=== PATIENT | male | born 1960 ===

== ENCOUNTER 2017-02-08 19:04 | Emergency (ER) | payer MEDICAID, OTHER ==
[2017-02-08 19:04] VITALS: BMI 27.3
[2017-02-08 19:11] VITALS: TEMP 97.8; O2SAT 98
--- NOTE | 2017-02-08 19:19 | C.PDOC ---
History Of Present Illness Pt presents with having high blood pressure after checking his BP today at [facility]. He notes intermittently taking his BP meds . Pt also c/o headaches for a couple of years and has taken no meds for it. Pt notes being anxious which prompted his visit. Had CT and blood work done which were negative. Denies nausea, vomiting, visual changes, SOB, fever, chills, chest pain, diaphoresis, dizziness, Time Seen by Provider: 02/08/17 19:19 Chief Complaint (Nursing): High Blood Pressure History Per: Patient History/Exam Limitations: no limitations Onset/Duration Of Symptoms: Hrs Current Symptoms Are (Timing): Better Associated Symptoms: denies: Chest Pain, Blurred Vision Quality Of Symptoms: denies: Asymptomatic Severity: None Pain Scale Rating Of: 0 Exacerbating Factor(s): Pos: None Recent travel outside of the [place]: No Additional History Per: Patient Past Medical History Reviewed: Historical Data, Nursing Documentation, Vital Signs Vital Signs: Last Vital Signs Temp 97.8 F 02/08/17 19:07 Pulse 77 02/08/17 19:07 Resp 16 02/08/17 19:07 BP 139/86 02/08/17 19:07 Pulse Ox 98 02/08/17 19:47 - Medical History PMH: Depression, Diverticulitis, HTN Denies: Chronic Kidney Disease - [facility] Procedures VACCINATION NEC (04/05/15) Family History: States: No Known Family Hx - Social History Hx Tobacco Use: No Hx Alcohol Use: No Hx Substance Use: No - Immunization History Hx Tetanus Toxoid Vaccination: No Hx Influenza Vaccination: No Hx Pneumococcal Vaccination: No Review Of Systems Constitutional: Positive for: Other (High blood pressure). Negative for: Fever , Chills, Sweats Eyes: Negative for: Vision Change Cardiovascular: Negative for: Chest Pain Respiratory: Negative for: Shortness of Breath Gastrointestinal: Negative for: Nausea, Vomiting Genitourinary: Negative for: Dysuria Musculoskeletal: Negative for: Back Pain Skin: Negative for: Rash Neurological: Positive for: Headache. Negative for: Dizziness Psych: Positive for: Anxiety Physical Exam - Physical Exam Appears: Non-toxic, No Acute Distress Skin: Warm, Dry Head: Normacephalic Eye(s): bilateral: Normal Inspection Oral Mucosa: Moist Neck: Trachea Midline, Supple Chest: Symmetrical Cardiovascular: Rhythm Regular Respiratory: No Rales, No Rhonchi, No Wheezing Gastrointestinal/Abdominal: Soft, No Tenderness, No Distention Back: No CVA Tenderness Extremity: Normal ROM, No Tenderness Extremity: Bilateral: Atraumatic, Normal Color And Temperature Neurological/Psych: Oriented x3, Normal Speech, Normal Cognition Gait: Steady ED Course And Treatment ECG: Interpreted By Me, Viewed By Me ECG Rhythm: Sinus Rhythm (70), L BBB, Nonspecific Changes O2 Sat by Pulse Oximetry: 98 (RA) Pulse Ox Interpretation: Normal Reevaluation Time: 20:20 Reassessment Condition: Improved Disposition Counseled Patient/Family Regarding: Studies Performed, Diagnosis - Disposition Referrals: [facility] [Outside] Disposition: HOME/ ROUTINE Disposition Time: 19:19 Condition: FAIR Instructions: Hypertension (DC) - Clinical Impression Clinical Impression: Hypertension - Scribe Statement The provider has reviewed the documentation as recorded by the Scribe carly manning All medical record entries made by the Scribe were at my direction and personally dictated by me. I have reviewed the chart and agree that the record accurately reflects my personal performance of the history, physical exam, medical decision making, and the department course for this patient. I have also personally directed, reviewed, and agree with the discharge instructions and disposition.
[2017-02-08 20:27] VITALS: BP 139/88; PULSE 80; RESP 12
--- NOTE | 2017-02-09 21:28 | CARD ---
APPROVED REPORT EKG Measurement Heart [id number] <Conclusion> Normal sinus rhythm Left bundle branch block Abnormal ECG
== END 2017-02-08 20:43 | disposition home or self-care (01) ==
LOC: C.ER 19:04
DX: I10 Essential (primary) hypertension (principal)

== ENCOUNTER 2017-02-16 05:15 | Emergency (ER) | payer SELFPAY ==
[2017-02-16 05:15] VITALS: BMI 29.6
[2017-02-16 05:29] VITALS: O2SAT 99
--- NOTE | 2017-02-16 05:36 | C.PDOC ---
History Of Present Illness 56 year old male who presents to the ER with a complaint of a throbbing, frontal headache that he has had intermittently for several months. Patient states he blood pressure was recently found to be high and was recently treated in the ER for it. Patient reports he was started on new medications; however, he cannot recall what they are and notes he forgot to take them yesterday. Denies dizziness, nausea, vomiting, or chest pain. Time Seen by Provider: 02/16/17 05:29 Chief Complaint (Nursing): Headache History Per: Patient History/Exam Limitations: no limitations Onset/Duration Of Symptoms: Days, Intermittent Episodes Current Symptoms Are (Timing): Still Present Quality: Other (Throbbing) Preceeding Symptoms: Known Migraine Symptoms Associated Symptoms: denies: Nausea, Vomiting Recent travel outside of the [place]: No Past Medical History Reviewed: Historical Data, Nursing Documentation, Vital Signs Vital Signs: Last Vital Signs Temp 98.3 F 02/16/17 05:25 Pulse 64 02/16/17 05:25 Resp 20 02/16/17 05:25 BP 186/109 H 02/16/17 05:25 Pulse Ox 99 02/16/17 06:11 - Medical History PMH: Depression, Diverticulitis, HTN Surgical History: No Surg Hx - [facility] Procedures VACCINATION NEC (04/05/15) Family History: States: Unknown Family Hx - Social History Hx Tobacco Use: No Hx Alcohol Use: No Hx Substance Use: No - Immunization History Hx Tetanus Toxoid Vaccination: No Hx Influenza Vaccination: No Hx Pneumococcal Vaccination: No Review Of Systems Cardiovascular: Negative for: Chest Pain, Palpitations Gastrointestinal: Negative for: Nausea, Vomiting Neurological: Positive for: Headache. Negative for: Dizziness Physical Exam - Physical Exam Appears: Non-toxic Skin: Normal Color, Warm, Dry Head: Atraumatic, Normacephalic Eye(s): bilateral: Normal Inspection, PERRL, EOMI Nose: Normal Oral Mucosa: Moist Neck: Normal, Supple Chest: Symmetrical, No Tenderness Cardiovascular: Rhythm Regular, No Murmur Respiratory: Normal Breath Sounds, No Rales, No Rhonchi, No Wheezing Gastrointestinal/Abdominal: Soft, No Tenderness Extremity: Bilateral: Atraumatic, Normal Color And Temperature, Normal ROM Neurological/Psych: Oriented x3, Normal Speech, Other (No focal deficits) Gait: Steady ED Course And Treatment O2 Sat by Pulse Oximetry: 99 (Room air) Pulse Ox Interpretation: Normal Medical Decision Making Medical Decision Making: Impression: 56 year old male with elevated blood pressure. Plan: * Tylenol * Catapres Patient's prior records review, it shows patient has recently had blood work done with no abnormal results; past head CTs and MRIs have been found to be normal. Upon re-eval BP no longer elevated. Patient remained alert and oriented and headache is improving. No neuro deficit. Patient stable for discharge Disposition Counseled Patient/Family Regarding: Diagnosis, Need For Followup, Rx Given - Disposition Disposition: HOME/ ROUTINE Disposition Time: 06:09 Condition: STABLE Additional Instructions: Follow up with clinic in 2-5 days for further evaluation. Take your HTN medications as prescribed. Return to the emergency department at any time if symptoms persist or worsen. Prescriptions: Acetaminophen/Butalbital/Caf [Fioricet] 1 tab PO TID PRN #20 tab PRN Reason: Headache Instructions: Chronic Hypertension (ED) - POA Present On Arrival: None - Clinical Impression Clinical Impression: Headache, Hypertension - Scribe Statement The provider has reviewed the documentation as recorded by the Scribcrys Kim All medical record entries made by the Scribe were at my direction and personally dictated by me. I have reviewed the chart and agree that the record accurately reflects my personal performance of the history, physical exam, medical decision making, and the department course for this patient. I have also personally directed, reviewed, and agree with the discharge instructions and disposition.
[2017-02-16 06:20] VITALS: BP 148/88; PULSE 88; RESP 18; TEMP 98.2
== END 2017-02-16 06:14 | disposition home or self-care (01) ==
LOC: C.ER 05:15
DX: I10 Essential (primary) hypertension (principal); R51 Headache

== ENCOUNTER 2017-03-13 16:12 | Emergency (ER) | payer SELFPAY ==
[2017-03-13 16:12] VITALS: BMI 29.6
[2017-03-13 16:21] VITALS: BP 162/83; PULSE 78; RESP 20; TEMP 97.9; O2SAT 98
[2017-03-13 16:59] LABS: SQUAMOUS EPITHIAL < 1 /hpf (0-5); URINE BILIRUBIN NEGATIVE (NEGATIVE); URINE BLOOD NEGATIVE (NEGATIVE); URINE CLARITY Clear (Clear); URINE COLOR Yellow (YELLOW); URINE GLUCOSE (UA) NORMAL (Normal); URINE LEUKOCYTE ESTERASE NEG Leu/uL (Negative); URINE NITRATE NEGATIVE (NEGATIVE); URINE PROTEIN NEGATIVE (NEGATIVE); URINE UROBILINOGEN NORMAL mg/dL (0.2-1.0)
--- NOTE | 2017-03-13 17:46 | RAD ---
Lumbar spine three views History: Low back pain. Comparison: None available. Findings: Question minimal retrolisthesis of L4 on L5. Anterior osteophytosis at the L3-4 level. Lower level facet hypertrophy and sclerosis. Mild inferior endplate concavity of the L5 vertebral body. Mild sclerosis at the superior endplate of the L2 vertebral body. Aortic calcification. Degenerative changes at the level of the bilateral SI joints with additional mild osteitis pubis. Punctate radiopaque calcification projects over the left sade abdomen, nonspecific. Calcified phleboliths in the pelvis. Impression: Question minimal retrolisthesis of L4 on L5. Anterior osteophytosis at the L3-4 level. Lower level facet hypertrophy and sclerosis. Mild inferior endplate concavity of the L5 vertebral body. Mild sclerosis at the superior endplate of the L2 vertebral body. Aortic calcification. Degenerative changes at the level of the bilateral SI joints with additional mild osteitis pubis. Punctate radiopaque calcification projects over the left sade abdomen, nonspecific. Calcified phleboliths in the pelvis. If pain persists, consider MRI.
--- NOTE | 2017-03-13 18:14 | C.PDOC ---
History Of Present Illness 56 y/o male presents to the ED for evaluation of lower back pain which began yesterday. Patient denies fever, chills, dysuria, hematuria, urinary/bowel incontinence, upper/lower extremity numbness/weakness, direct injury/trauma to the affected areas. Time Seen by Provider: 03/13/17 16:42 Chief Complaint (Nursing): Back Pain History Per: Patient History/Exam Limitations: no limitations Onset/Duration Of Symptoms: Hrs Current Symptoms Are (Timing): Still Present Quality Of Discomfort: "Pain" Previous Symptoms: Back Pain Associated Symptoms: denies: Incontinence, New Weakness, New Numbness Additional History Per: Patient Past Medical History Reviewed: Historical Data, Nursing Documentation, Vital Signs Vital Signs: Last Vital Signs Temp 97.9 F 03/13/17 16:18 Pulse 78 03/13/17 16:18 Resp 20 03/13/17 16:18 BP 162/83 H 03/13/17 16:18 Pulse Ox 98 03/13/17 19:12 - Medical History PMH: Depression, Diverticulitis, HTN Surgical History: No Surg Hx - [facility] Procedures VACCINATION NEC (04/05/15) Family History: States: Unknown Family Hx - Social History Hx Tobacco Use: No Hx Alcohol Use: No Hx Substance Use: No - Immunization History Hx Tetanus Toxoid Vaccination: No Hx Influenza Vaccination: No Hx Pneumococcal Vaccination: No Review Of Systems Genitourinary: Negative for: Dysuria, Frequency Musculoskeletal: Positive for: Back Pain (lower ) Neurological: Negative for: Weakness, Numbness Physical Exam - Physical Exam Appears: Non-toxic, No Acute Distress Skin: Normal Color, Warm, Dry Head: Atraumatic Eye(s): bilateral: Normal Inspection Oral Mucosa: Moist Neck: Supple Chest: Symmetrical, No Deformity, No Tenderness Cardiovascular: Rhythm Regular, No Murmur Respiratory: Normal Breath Sounds, No Rales, No Rhonchi, No Wheezing Back: Paraspinal Tenderness (mid-LS spine ) Extremity: Normal ROM, Capillary Refill (less than 2 seconds ) Neurological/Psych: Normal Speech, Normal Cognition Gait: Steady ED Course And Treatment O2 Sat by Pulse Oximetry: 98 (on RA) Pulse Ox Interpretation: Normal Progress Note: UA, LS Spine AP/LAT ordered and reviewed. Patient received Toradol IM. On reassessment, patient is resting comfortably, showing no signs of distress,and reports an improvement in his symptoms. Patient is stable for discharge and is advised to f/u with his PMD within 1-2 days for further evaluation. Disposition - Disposition Disposition: HOME/ ROUTINE Disposition Time: 18:13 Condition: STABLE Additional Instructions: Follow up with PMD within 1-2 days. Return to ED if feel worse . Prescriptions: Cyclobenzaprine [Cyclobenzaprine HCl] 10 mg PO TID #30 tab Ibuprofen [Motrin Tab] 600 mg PO Q8 #30 tab Instructions: Back Pain (ED) Forms: [employer] (Danish) - Clinical Impression Clinical Impression: Low back pain - PA / WAITER/[employer] / Resident Statement MD/DO has reviewed & agrees with the documentation as recorded. - Scribe Statement The provider has reviewed the documentation as recorded by the Scribe (Delia Arriola) All medical record entries made by the Scribe were at my direction and personally dictated by me. I have reviewed the chart and agree that the record accurately reflects my personal performance of the history, physical exam, medical decision making, and the department course for this patient. I have also personally directed, reviewed, and agree with the discharge instructions and disposition.
== END 2017-03-13 18:43 | disposition home or self-care (01) ==
LOC: C.ER 16:12
DX: M54.5 Low back pain (principal)
CPT/HCPCS: 72100; 81001; 96372; 99284; J1885

== ENCOUNTER 2017-03-24 21:26 | Emergency (ER) | payer SELFPAY ==
[2017-03-24 21:26] VITALS: BMI 29.6
[2017-03-24 21:39] VITALS: TEMP 98.4
--- NOTE | 2017-03-24 22:43 | C.PDOC ---
History Of Present Illness 56 y/o male c/o headache and dizziness that began yesterday. Reports that he started working out yesterday, where he was running and started feeling lightheaded and dizzy. He then went to check his BP at a local drug store and found his BP elevated. Denies visual changes, nausea, vomiting, fever, chills, chest pain, SOB, diaphoresis, weakness, or numbness. Time Seen by Provider: 03/24/17 22:43 Chief Complaint (Nursing): Headache History Per: Patient History/Exam Limitations: no limitations Onset/Duration Of Symptoms: Days Current Symptoms Are (Timing): Still Present Severity: Mild Associated Symptoms: denies: Photophobia, Blurred Vision, Nausea, Vomiting, Extremity Weakness Recent travel outside of the [place]: No Additional History Per: Patient Past Medical History Reviewed: Historical Data, Nursing Documentation, Vital Signs Vital Signs: Last Vital Signs Temp 98.4 F 03/24/17 21:35 Pulse 64 03/25/17 01:12 Resp 17 03/25/17 01:12 BP 155/89 H 03/25/17 01:12 Pulse Ox 97 03/25/17 01:12 - Medical History PMH: Depression, Diverticulitis, HTN Denies: Chronic Kidney Disease - [facility] Procedures VACCINATION NEC (04/05/15) Family History: States: No Known Family Hx - Social History Hx Tobacco Use: No Hx Alcohol Use: No Hx Substance Use: No - Immunization History Hx Tetanus Toxoid Vaccination: No Hx Influenza Vaccination: No Hx Pneumococcal Vaccination: No Review Of Systems Constitutional: Negative for: Fever, Chills, Sweats Eyes: Negative for: Vision Change Cardiovascular: Positive for: Light Headedness. Negative for: Chest Pain Respiratory: Negative for: Shortness of Breath Gastrointestinal: Negative for: Nausea, Vomiting Neurological: Positive for: Dizziness. Negative for: Weakness, Numbness Psych: Negative for: Anxiety Physical Exam - Physical Exam Appears: Non-toxic, No Acute Distress Skin: Warm, Dry Head: Normacephalic Oral Mucosa: Moist Neck: Supple Cardiovascular: Rhythm Regular Respiratory: No Rales, No Rhonchi, No Wheezing Gastrointestinal/Abdominal: Soft, No Tenderness Back: No CVA Tenderness Neurological/Psych: Oriented x3, Normal Speech, Normal Cognition, Other (No focal deficit) Gait: Steady ED Course And Treatment - Laboratory Results Result Diagrams: 03/24/17 23:14 03/24/17 23:14 ECG: Interpreted By Me, Viewed By Me O2 Sat by Pulse Oximetry: 98 (RA) Pulse Ox Interpretation: Normal - Radiology CXR: Interpreted by Me, Viewed By Me CXR Interpretation: No: Infiltrates, Fracture, Pnemothorax Reevaluation Time: 01:42 Reassessment Condition: Improved Medical Decision Making Medical Decision Making: Upon provider reevaluation patient is feeling better, is medically stable, and requires no further treatment in the ED at this time. Patient will be discharged home . Counseling was provided and all questions were answered regarding diagnosis and need for follow up with the referred clinic. There is agreement to discharge plan. Return if symptoms persist or worsen Disposition Counseled Patient/Family Regarding: Studies Performed, Diagnosis, Need For Followup - Disposition Referrals: [facility] [Outside] [facility] [Outside] Disposition: HOME/ ROUTINE Disposition Time: 22:43 Condition: FAIR Additional Instructions: Thank you for letting us take care of you today. Your provider was Dr. Vargas You were treated for hypertension. The emergency medical care you received today was directed at your acute symptoms. If you were prescribed any medication , please fill it and take as directed. It may take several days for your symptoms to resolve. Return to the Emergency Department if your symptoms worsen , do not improve, or if you have any other problems. Please contact your doctor or call one of the physicians/clinics you have been referred to that are listed on the Patient Visit Information form that is included in your discharge packet. Bring any paperwork you were given at discharge with you along with any medications you are taking to your follow up visit. Our treatment cannot replace ongoing medical care by a primary care provider (PCP) outside of the emergency department. Instructions: Hypertension (DC) Forms: [employer] (Tristanian) - Clinical Impression Clinical Impression: Hypertension - Scribe Statement The provider has reviewed the documentation as recorded by the Lizibe Isaias manning All medical record entries made by the Lizibe were at my direction and personally dictated by me. I have reviewed the chart and agree that the record accurately reflects my personal performance of the history, physical exam, medical decision making, and the department course for this patient. I have also personally directed, reviewed, and agree with the discharge instructions and disposition.
[2017-03-24] MEDS ORDERED: Labetalol 5 mg/ml Inj 20ML IV STA (22:49)
[2017-03-24 23:18] LABS: BASO # 0.1 K/uL (0.0-0.2); BASO % 0.9 % (0.0-2.0); EOS # 0.2 K/uL (0.0-0.7); EOS % 2.2 % (0.0-4.0); HEMATOCRIT 47.4 % (35.0-51.0); LYMPH # 2.1 K/uL (1.0-4.3); LYMPH % 21.7 % (20.0-40.0); MEAN CORPUSCULAR HEMOGLOBIN 29.5 pg (27.0-31.0); MEAN CORPUSCULAR HGB CONC 33.1 g/dL (33.0-37.0); MONO # 0.9 K/uL (0.0-0.8); MONO % 9.3 % (0.0-10.0); NRBC % 0.1 % (0.0-2.0); RED CELL DISTRIBUTION WIDTH 13.2 % (11.5-14.5); WHITE BLOOD COUNT 9.5 K/uL (4.8-10.8)
[2017-03-24 23:28] LABS: CHLORIDE 101 mmol/L (98-107)
[2017-03-24 23:29] LABS: POTASSIUM 4.6 mmol/L (3.6-5.2); SODIUM 136 mmol/L (132-148)
[2017-03-24 23:31] LABS: ALB/GLOB RATIO 1.1 (1.0-2.1); AST/SGOT 34 U/L (17-59); BILIRUBIN,TOTAL 0.6 mg/dL (0.2-1.3); BLOOD UREA NITROGEN 16 mg/dL (9-20); CARBON DIOXIDE 26 mmol/L (22-30); GFR AFRICAN-AMERICAN > 60; TOTAL PROTEIN 7.5 g/dL (6.3-8.3)
[2017-03-24 23:32] LABS: ALKALINE PHOSPHATASE 78 U/L (38-126); ALT/SGPT 51 U/L (21-72); CALCIUM 9.2 mg/dl (8.6-10.4); GLUCOSE,RANDOM 90 mg/dL (75-110)
[2017-03-24 23:59] VITALS: PULSE 64
--- NOTE | 2017-03-25 00:17 | CT ---
EXAM: CT Head Without Intravenous Contrast CLINICAL HISTORY: 56 years old, male; Pain; Headache and other: Dizziness; Patient HX: 01-22-16; Additional info: Dizziness, headache, HTN TECHNIQUE: Axial computed tomography images of the head/brain without intravenous contrast. All CT scans at this facility use one or more dose reduction techniques, viz.: automated exposure control; ma/kV adjustment per patient size (including targeted exams where dose is matched to indication; i.e. head); or iterative reconstruction technique. COMPARISON: No relevant prior studies available. FINDINGS: Brain: Mild atrophy. No intracranial hemorrhage. No mass. No definite edema. Ventricles: No hydrocephalus. Bones/joints: No acute fracture. Soft tissues: Unremarkable. Sinuses: Scattered minimal mucosal thickening. Mastoid air cells: No mastoid effusion. Orbits: Unremarkable as visualized. IMPRESSION: 1. No acute intracranial abnormality. 2. Incidental/non-acute findings are described above.
[2017-03-25 01:34] VITALS: BP 155/89; RESP 17
[2017-03-25 01:45] VITALS: O2SAT 98
--- NOTE | 2017-03-25 08:38 | RAD ---
PROCEDURE: CHEST RADIOGRAPH, 1 VIEW HISTORY: SOB COMPARISON: 01/30/2016. FINDINGS: LUNGS: The lungs are clear. PLEURA: No pneumothorax or pleural fluid seen. CARDIOVASCULAR: Normal. OSSEOUS STRUCTURES: No significant abnormalities. VISUALIZED UPPER ABDOMEN: Normal. OTHER FINDINGS: None. IMPRESSION: No active pulmonary disease.
== END 2017-03-25 01:55 | disposition home or self-care (01) ==
LOC: C.ER 21:26
DX: I10 Essential (primary) hypertension (principal)

== ENCOUNTER 2017-06-08 02:31 | Emergency (ER) | payer OTHER ==
[2017-06-08 02:32] VITALS: BMI 29.6
[2017-06-08 02:42] VITALS: O2SAT 99
[2017-06-08] MEDS ORDERED: Apap-Butalbital-Caffeine 325-50-40mg Tab PO STA (02:50)
[2017-06-08] MEDS ORDERED: Apap-Butalbital-Caffeine 325-50-40mg Tab ONE (03:00)
[2017-06-08 03:19] VITALS: BP 140/82; PULSE 58; RESP 17; TEMP 97.9
--- NOTE | 2017-06-08 03:36 | C.PDOC ---
History Of Present Illness 57 year old male presents to the ER with a complaint of a headache for the past 3 days. Patient reports he has been taking aspirin with transient relief. Patient has a Hx of HTN and is currently on HTN medication (name unknown), ran out of the medication a week ago. He denies nausea, vomiting, sensory changes, extremity weakness, facial droop, slurred speech, visual changes, chest pain, or SOB. Time Seen by Provider: 06/08/17 02:36 Chief Complaint (Nursing): Headache History Per: Patient History/Exam Limitations: no limitations Onset/Duration Of Symptoms: Days Current Symptoms Are (Timing): Still Present Severity: Mild Quality: "Pain" Preceeding Symptoms: None Associated Symptoms: denies: Photophobia, Blurred Vision, Nausea, Vomiting, Extremity Weakness Past Medical History Reviewed: Historical Data, Nursing Documentation, Vital Signs Vital Signs: Last Vital Signs Temp 97.9 F 06/08/17 03:18 Pulse 58 L 06/08/17 03:18 Resp 17 06/08/17 03:18 BP 140/82 06/08/17 03:18 Pulse Ox 99 06/08/17 03:41 - Medical History PMH: Depression, Diverticulitis, HTN Surgical History: No Surg Hx - [facility] Procedures VACCINATION NEC (04/05/15) Family History: States: No Known Family Hx - Social History Hx Tobacco Use: No Hx Alcohol Use: No Hx Substance Use: No - Immunization History Hx Tetanus Toxoid Vaccination: No Hx Influenza Vaccination: No Hx Pneumococcal Vaccination: No Review Of Systems Except As Marked, All Systems Reviewed And Found Negative. Constitutional: Negative for: Fever, Chills Cardiovascular: Negative for: Chest Pain Respiratory: Negative for: Cough, Shortness of Breath Gastrointestinal: Negative for: Nausea, Vomiting, Abdominal Pain Neurological: Positive for: Headache. Negative for: Dizziness Physical Exam - Physical Exam Appears: Well, Non-toxic, Other (Anxious) Skin: Normal Color, Warm, Dry Head: Normacephalic Eye(s): bilateral: Normal Inspection, PERRL, EOMI Oral Mucosa: Moist Neck: Supple Cardiovascular: Rhythm Regular Respiratory: Normal Breath Sounds, No Rales, No Rhonchi, No Wheezing Gastrointestinal/Abdominal: Normal Exam, Bowel Sounds, Soft, No Tenderness Extremity: Normal ROM, No Pedal Edema Neurological/Psych: Oriented x3, Normal Speech, Normal Cognition, Normal Cranial Nerves, No Cerebellar Signs, Normal Motor, Normal Sensation Gait: Steady ED Course And Treatment O2 Sat by Pulse Oximetry: 99 (Room air) Pulse Ox Interpretation: Normal Progress Note: Patient given PO Fioricet and Norvasc. Reevaluation Time: 03:40 Reassessment Condition: Improved (On reassessment, patient is resting comfortably and states he feels better, headache has resolved. Rxs given for Fiorecet and Norvasc. Patient instructed to follow up in the medical clinic in 1-2 days in order to be restarted on his HTN medications. In the meantime, he should take norvasc daily. Patient understands he should return to ED if symptoms worsen.) Disposition Counseled Patient/Family Regarding: Studies Performed, Diagnosis, Need For Followup, Rx Given - Disposition Referrals: [facility] [Outside] Disposition: HOME/ ROUTINE Disposition Time: 03:40 Condition: STABLE Additional Instructions: SEGUIMIENTO EN LA CLNICA MDICA EN 1-2 JERONIMO USE MEDICAMENTOS SEGN LO INDICADO REGRESE AL YENNY DE EMERGENCIA SI LOS SNTOMAS EMPEORAN Prescriptions: Acetaminophen/Butalbital/Caf [Fioricet] 1 tab PO TID PRN #20 tab PRN Reason: Headache amLODIPine [Norvasc] 5 mg PO DAILY #30 tab Instructions: Butalbital/Acetaminophen/Caffeine (By mouth), Amlodipine (By mouth), Acute Headache (ED), Hypertension (ED) Forms: [employer] (Slovenian) Print Language: KHMER - POA Present On Arrival: None - Clinical Impression Clinical Impression: Hypertension, Headache - Scribe Statement The provider has reviewed the documentation as recorded by the Scribcrys Kim All medical record entries made by the Scribe were at my direction and personally dictated by me. I have reviewed the chart and agree that the record accurately reflects my personal performance of the history, physical exam, medical decision making, and the department course for this patient. I have also personally directed, reviewed, and agree with the discharge instructions and disposition.
== END 2017-06-08 03:44 | disposition home or self-care (01) ==
LOC: C.ER 02:31
DX: I10 Essential (primary) hypertension (principal); R51 Headache